=== PATIENT | female | born 1960 | race Caucasian/White ===

== ENCOUNTER 2023-12-03 12:07 | Observation (INO) | payer MEDICARE, SELFPAY ==
[2023-12-03] VITALS (14 sets, daily range): BP systolic 110–151; BP diastolic 60–98; BMI 21.2
--- NOTE | 2023-12-03 07:58 | ED.GENMED ---
History of Present Illness
General
Chief Complaint: Fall
Source: patient and ambulance crew
Exam Limitations: none
Time Seen by Provider: 12/03/23 07:43
Nursing documentation reviewed up to this point in time: agreed with
Travel History
Have you had any contact with someone who has COVID-19?: No
Do you have any symptoms of coronavirus? Fever > 100 degrees, chills, cough, shortness of breath, sore throat, loss of taste or smell, muscle aches, or headache?: No
History of Present Illness
History of Present Illness:
63-year-old female with past medical history of low heart rate currently being evaluated by cardiology presenting to the emergency department today with concerns of an episode where she felt very nauseous was on her way to the bathroom this morning
felt lightheaded passed out fell to the ground apparently this was heard by the who was at the scene she was unconscious for rough 30 seconds or less upon awakening she was able to stand up still felt somewhat lightheaded and started having
shooting discomfort down both of her arms left side worse than the right. Denies specific numbness or weakness. Does have some neck pain and also left-sided forehead laceration. She denies any chest pain shortness of breath. When EMS arrived her
heart rate was in the 40s and high 30s and her blood pressure was in the 70s systolic. This improved after receiving fluids. She does feel better at this point upon arrival to the ER but does still have some mild ongoing lightheadedness. Also
does have ongoing shoulder discomfort.
Past History
Past History
ED Past Medical History: Other (Gastritis); Negative Asthma, HTN, Hypercholesterolemia or NIDDM
ED Past Surgical History: None
Social History
Tobacco: Non-smoker
Alcohol: Occasional
Personal: Partner
Living: with family
Review of Systems
Review of Systems
Allergies reviewed?: Yes
All Other Systems: ROS reviewed and negative except as documented in HPI and ROS
Phy Exam
Physical Exam
Physical Exam:
GENERAL: Alert , in no apparent distress
EYE: pupils equal and reactive
NECK: Supple, no significant adenopathy.
ENT: o/p clr, mmm.
CARDIAC: Regular rate and rhythm .
LUNGS: Clear breath sounds bilaterally, no acute respiratory distress, no wheezes/rales/rhonchi
ABDOMEN: Soft, without focal tenderness, no r/g, no cvat
NEUROLOGICAL: Alert and oriented, no focal neuro deficits 5 out of 5 upper and lower extremity strength and sensation palpated bilaterally.
SKIN: Warm and dry, skin intact.
MUSCULOSKELETAL: No edema, well perfused.
PSYCH: Normal and appropriate interaction.
Course
Orders/Labs/Results
Orders:
Orders
12/03/23 07:41
Electrocardiogram (*1) Urgent
Reason for Study: Vertigo / Dizzy
EKG- Treatment ONCE
12/03/23 07:47
Complete Blood Count/With Diff Urgent
12/03/23 07:55
CT Cervical Spine W/o Iv Contr Urgent
Comment:
Reason For Exam: fall neck pain, shooting pain to arms
CT Head W/o Iv Contrast Urgent
Comment:
Reason For Exam: fall hity head
Chest [CR Chest - 2 Views ] Urgent
Comment:
Reason For Exam: fall
12/03/23 07:56
0.9% Sodium Chloride 500 ml [Nss] 500 ml IV BOLUS
12/03/23 08:08
COVID-19 Antigen Urgent
Source: Nasal Swab
Lactic Acid Urgent
Influenza A+B Rapid Molecular Urgent
SOBEIDA Source: Nasal Swab
Specimen Description:
12/03/23 08:14
Comprehensive Metabolic Panel Routine
Troponin I Routine
12/03/23 10:19
BMP [Basic Metabolic Panel] Urgent
Abnormal Lab Results
12/03/23
08:14
Sodium 131 L mmol/L
(135-145)
Glucose 122 H mg/dl
(70-99)
12/03/23 07:47
Vital Signs
Initial and Last Documented VS:
Initial Vital Signs
Temp Pulse Resp BP Pulse Ox
97.6 F 58 16 134/71 98
12/03/23 07:42 12/03/23 07:42 12/03/23 07:42 12/03/23 07:42 12/03/23 07:42
Last Documented Vital Signs
Temp Pulse Resp BP Pulse Ox
97.6 F 63 25 151/66 99
12/03/23 07:42 12/03/23 10:02 12/03/23 10:02 12/03/23 10:16 12/03/23 10:17
MDM/Problems Addressed
MDM/Problems Addressed:
63-year-old female presenting to the emergency department today with concerns of discomfort shooting down her arms bilaterally after syncopal episode that occurred just prior to arrival. This was preceded by nausea. was at the scene
unconscious for 30 seconds or less. Hypotensive and bradycardic when EMS arrived but improved with a small amount of fluids. On arrival here vital signs are normal heart rate in the high 50s normal O2 saturation respirations normal blood pressure.
Plan for labs as well as CT scan for further assessment. No neurologic dysfunction of the upper or lower extremities however patient does have ongoing shooting discomfort down her left arm. CT scan of the neck was ordered. CT scan without
emergent findings. Labs unremarkable troponin negative. Chest x-ray without emergent findings. Patient has been having intermittent episodes of bradycardia and an episode today of syncope that may be related to slow heart rate concerning
possibility of cardiac syncope plan for admission for further monitoring and evaluation.
*Critical Care Note
Total Time (30-74mins, 75-104mins- exclusive of procedures): Not Applicable
ED Attending Note
-
Portions of this chart may have been created with voice recognition software.� Occasional wrong word or��sound alike� substitutions may have occurred due to the inherent limitations of voice recognition software.
Discharge Plan
Departure
Patient Disposition: Admit
Date of Disposition: 12/03/23
Time of Disposition: 10:35
Admit to: Telemetry
Admit to doctor: Nella
Presentation/result/management discussed w/ accepting MD/DO: Hospitalist
Patient with high blood pressure during this ER visit?: No
Condition: Good
Covid-19: Not Applicable
Discharge Problem:
Syncope, Bradycardia
Prescriptions:
No Action
budesonide [Rhinocort Allergy] 8.43 ML spray,non-aerosol
1 spray intranasal DAILYPRN PRN (Reason: allergies)
cetirizine 10 MG tablet
10 mg PO NOW
omeprazole 40 mg Capsule,Delayed Release(Dr/Ec)
40 mg PO DAILY PRN (Reason: acid reflux)
Referrals:
Nayla Hart MD [Family Provider] -
Interventions
Interventions:
*Risk Screen - Suicide Last Done: 12/03/23 07:42
*General Assessment Last Done: 12/03/23 07:42
*Neglect/Abuse Screening Last Done: 12/03/23 07:42
ED- Fall Risk Assessment Last Done: 12/03/23 07:42
*ED COVID-19 Vaccine History Last Done: 12/03/23 07:42
ED-Musculoskeletal Assessment Last Done: 12/03/23 07:42
ED- Neurological Assessment Last Done: 12/03/23 07:42
ED-Skin Assessment Last Done: 12/03/23 07:42
[2023-12-03 08:05] LABS: % Basophils 0.3 % (0-2); % Eosinophils 0.6 % (0-6); % Immature Granulocytes 0.3 % (0-0.5); % Lymphocytes 21.3 % (20.5-51.1); % Monocytes 5.8 % (1.7-9.3); % Neutrophils 71.7 % (42.2-75.2); Absolute Lymphocytes 1.4 10^3/uL (1.2-3.4); Absolute Monocytes 0.4 10^3/uL (0.1-0.6); Absolute Neutrophils 4.7 10^3/uL (1.4-6.5); Hematocrit 38.3 % (37.0-47.0); Hemoglobin 13.1 g/dL (12.0-16.0); Mean Corp Hgb Conc. 34.2 g/dL (33.0-37.0); Mean Corpuscular Hgb 30.9 pg (27.0-31.0); Mean Corpuscular Volume 90.3 fL (81.0-99.0); Mean Platelet Volume 9.6 fL (7.4-10.4); Nucleated Red Blood Cells % 0 %; Platelet Count 222 10^3/uL (130-400); Red Blood Cell Count 4.24 10^6/uL (4.20-5.40); Red Cell Dist. Width 12.3 % (11.5-14.5); White Blood Cell Count 6.5 10^3/uL (4.8-10.8)
[2023-12-03] MEDS: NSS 500 IV (08:07)
[2023-12-03 08:35] LABS: Lactic Acid 1.4 mmol/L (0.7-2.0)
[2023-12-03 08:38] LABS: COVID-19 Antigen Negative (Negative)
[2023-12-03 08:41] LABS: ALT (SGPT) 21 U/L (0-35); AST (SGOT) 35 U/L (14-36); Albumin 3.9 g/dl (3.5-5.0); Alkaline Phosphatase 74 U/L (38-126); Blood Urea Nitrogen 14 mg/dl (7-17); Calcium 9.1 mg/dl (8.4-10.2); Carbon Dioxide 27 mmol/L (22-30); Chloride 101 mmol/L (98-107); Estimated Creatinine Clearance 68 ml/min; Glucose 122 mg/dl (70-99); Potassium 4.4 mmol/L (3.5-5.1); Sodium 131 mmol/L (135-145); Total Bilirubin 0.5 mg/dl (0.2-1.3); Total Protein 6.7 g/dl (6.3-8.2); eGFR > 60.00
[2023-12-03 08:47] LABS: Troponin I < 0.012 ng/ml
--- NOTE | 2023-12-03 10:31 | CON.CAR ---
Addendum entered and electronically signed by Jose R Akbar MD 12/03/23 13:15:
Patient seen and examined in collaboration with PROPERTY OFFICER; agree with below.
-Patient admitted with symptomatic bradycardia (syncope); known significant bradycardia previously.
-Echocardiogram today.
-Patient will undergo permanent pacemaker implantation tomorrow morning; NPO after midnight.
-production zone leader overnight.
Original Note:
Consultation
Consultation Request
Date/Time Consultation Requested: 12/03/23 0953
Date/Time Consultation Performed: 12/03/23 1056
Requesting Provider: Darek Carlin PA-C
Performing Provider: Ginny HENDRIX for Dr. Akbar
Reason for Consultation: bradycardia, syncope
Medical History
-
Chief Complaint: syncope
History of Present Illness:
63 y/o female with bradycardia who is here for evaluation after an episode of syncope this AM. Briefly, she felt nauseated and like she might vomit, so she started to walk to the bathroom and passed out. She felt mildly light-headed prior to passing
out. She has seen Dr. Randle in work-up of her bradycardia and was scheduled for a holter monitor today.
Past Medical History
Past Medical History: Arrhythmias and Other (seasonal allergies)
Social History
Tobacco: Non-Smoker
Alcohol: Occasional
Family History
Family History: CAD (mom stents) and Other (pacemaker dad)
Allergies / Home Medications
Allergy/AdvReac Type Severity Reaction Status Date / Time
No Known Allergies Allergy Unverified 02/07/21 13:49
Medication Instructions Recorded Confirmed Type
budesonide 32 mcg/actuation nasal 1 spray intranasal DAILYPRN PRN 02/07/21 12/03/23 History
spray (Rhinocort Allergy) allergies
cetirizine 10 mg tablet 10 mg PO NOW 02/07/21 12/03/23 History
omeprazole 40 mg capsule,delayed 40 mg PO DAILY PRN acid reflux 12/03/23 12/03/23 History
release
Review of Systems
-
History Source: Patient
All other systems: Negative unless noted
Constitutional: Fatigue
Cardiac: Syncope
Physical Exam
Vital Signs
Temp Pulse Resp BP Pulse Ox
97.6 F 63 25 151/66 99
12/03/23 07:42 12/03/23 10:02 12/03/23 10:02 12/03/23 10:16 12/03/23 10:17
Lab Results
12/03/23 07:47
Troponin I < 0.012 ng/ml 12/03/23 08:14
Physical Exam
General: Well Developed, Well Nourished and No Apparent Distress
HEENT: Normocephalic and Anicteric
Respiratory: Clear and Non Labored Respirations
Cardiac: Regular Rhythm (SB/SR)
Musculoskeletal: No Edema
Skin: Warm and Dry
Neuro: AO x 3
Psych: Calm
Impression / Plan
-
Syncope:
-suspect related to symptomatic bradycardia
-check echo
-likely plan for pacemaker tomorrow- Dr. Akbar to discuss with patient
-check thyroid studies, but previously normal
-follow tele and BP's
Bradycardia:
-severe in that she is symptomatic (fatigue, now progressed to syncope) and will require pacemaker as above
Data Reviewed
-
EKG: Tracing Personally Visualized and interpreted (SB 53 BPM)
Radiology: Report Reviewed by me (CXR 12/03/23: No acute cardiopulmonary process.)
CT Scan: Report Reviewed by me (Head- No acute intracranial abnormality.)
Medical Tests (Nuc Med, Echo etc): Report Reviewed by me (treadmill stress test 10/08/23: normal)
Labs: Labs Reviewed by me
[2023-12-03 11:00] LABS: Blood Urea Nitrogen 13 mg/dl (7-17); Calcium 8.9 mg/dl (8.4-10.2); Carbon Dioxide 25 mmol/L (22-30); Chloride 101 mmol/L (98-107); Estimated Creatinine Clearance 90 ml/min; Glucose 104 mg/dl (70-99); Sodium 130 mmol/L (135-145); eGFR > 60.00
--- NOTE | 2023-12-03 11:14 | HPS.HSE ---
Family Physician
-
Family Physician: Nayla Hart MD
Chief Complaint
-
Syncope
History of Present Illness
63-year-old female with a past medical history of gastritis, allergic rhinitis, and bradycardia currently being evaluated by Dr. Randle presents with syncope. Patient reports that she woke up this morning feeling nauseous and lightheaded. She was
going to the bathroom to vomit, and then passed out, hitting her head. Event was witnessed by her . She was unconscious for about 30 seconds. She has a small laceration on the corner of her left eye, as well as neck pain radiating down her
left arm. She was found to be bradycardic by EMS, with a heart rate in the 40s sinus. She denies chest pain, shortness of breath, palpitations. No dysuria, no black or bloody stools.
Medical History
Past Medical History
Past Medical History: Reports Other
Additional Past Medical History:
Bradycardia
Gastritis
Allergic rhinitis
Past Surgical History: Reports Other
Additional Past Surgical History:
Tonsillectomy
TV septum repair
Social History
Tobacco: Non-smoker
Alcohol: Occasional
Drug: None
Personal:
Living: With Family
Family History
Family History: Not pertinent
Allergies / Home Medications
Allergies reflects when Allergies were last updated in [facility].
Home Medications with original date entered in [facility]
Allergy/Medication List:
Allergies
Allergy/AdvReac Type Severity Reaction Status Date / Time
No Known Allergies Allergy Unverified 02/07/21 13:49
Home Medications Table - record
Medication Instructions Recorded Confirmed
budesonide 32 mcg/actuation nasal 1 spray intranasal DAILYPRN PRN 02/07/21 12/03/23
spray (Rhinocort Allergy) allergies
cetirizine 10 mg tablet 10 mg PO NOW 02/07/21 12/03/23
omeprazole 40 mg capsule,delayed 40 mg PO DAILY PRN acid reflux 12/03/23 12/03/23
release
Review of Systems
-
A 12 point ROS was completed and negative except as noted: Yes
Physical Exam
Vital Signs
Vital Signs
Temp Pulse Resp BP Pulse Ox
97.6 F 63 25 151/66 99
12/03/23 07:42 12/03/23 10:02 12/03/23 10:02 12/03/23 10:16 12/03/23 10:17
Physical Exam
General: No Apparent Distress
HEENT: NormoCephalic, Anicteric and Other (Tiny laceration on the corner of the left orbit)
Respiratory: Clear
Cardiac: S1/S2 and Regular Rhythm
GI: Soft and Non Tender
Musculoskeletal: No Clubbing, No Cyanosis and No Edema
Neuro: Awake, Alert and Oriented
Psych: Calm
Laboratory Results
-
12/03/23 07:47
12/03/23 10:19
Laboratory Results
Lactic Acid 1.4 mmol/L (0.7-2.0) 12/03/23 08:08
Total Bilirubin 0.5 mg/dl (0.2-1.3) 12/03/23 08:14
AST 35 U/L (14-36) 12/03/23 08:14
ALT 21 U/L (0-35) 12/03/23 08:14
Alkaline Phosphatase 74 U/L (38-126) 12/03/23 08:14
Troponin I < 0.012 ng/ml 12/03/23 08:14
Impression/Plan
-
HPI: 63-year-old female with a past medical history of gastritis, allergic rhinitis, and bradycardia currently being evaluated by Dr. Randle presents with syncope. Patient reports that she woke up this morning feeling nauseous and lightheaded. She
was going to the bathroom to vomit, and then passed out, hitting her head. Event was witnessed by her . She was unconscious for about 30 seconds. She has a small laceration on the corner of her left eye, as well as neck pain radiating down
her left arm. She was found to be bradycardic by EMS, with a heart rate in the 40s sinus. She denies chest pain, shortness of breath, palpitations. No dysuria, no black or bloody stools.
#Syncope
#Sinus bradycardia
Monitor on telemetry, echocardiogram requested, consult cardiology
#Closed head injury
#Left orbit laceration
Head and neck CT are negative
Continue pain control, wound care
#Hyponatremia
Fluid restrict, check TSH/free T4, a.m. cortisol
#Nausea/vomiting
Antiemetics as needed
#History of gastritis
Continue PPI
#Allergic rhinitis
Continue antihistamine
DVT prophylaxis�subcu heparin
Full code
[2023-12-03 12:51] LABS: TSH Reflex To Free T4 1.17 uIU/ml (0.47-4.68)
[2023-12-03 17:23] LABS: Troponin I < 0.012 ng/ml
[2023-12-03] MEDS: HEPARIN 5000 UNITS SC (19:19)
[2023-12-03] MEDS: TYLENOL 1000 MG PO (19:41)
[2023-12-04] VITALS (11 sets, daily range): BP systolic 117–143; BP diastolic 67–82; BMI 20.4
--- NOTE | 2023-12-04 07:20 | W.PN.HOSP.TC ---
Today's Communication/Plan
-
For permanent pacemaker today
Assessment / Plan
Assessment / Plan
HPI: 63-year-old female with a past medical history of gastritis, allergic rhinitis, and bradycardia currently being evaluated by Dr. Randle presents with syncope.� Patient reports that she woke up this morning feeling nauseous and lightheaded.� She
was going to the bathroom to vomit, and then passed out, hitting her head.� Event was witnessed by her .� She was unconscious for about 30 seconds. She has a small laceration on the corner of her left eye, as well as neck pain radiating down
her left arm.� She was found to be bradycardic by EMS, with a heart rate in the 40s sinus.� She denies chest pain, shortness of breath, palpitations.� No dysuria, no black or bloody stools.
#Syncope
#Sinus bradycardia
Echocardiogram shows normal ejection fraction, small pericardial effusion
Appreciate cardiology input, plan for permanent pacemaker placement today
#Closed head injury
#Left orbit laceration
Head and neck CT are negative
Continue pain control, wound care
#Cervical radiculopathy
Pain control
#Hyponatremia
Suspect secondary to excess ADH secretion from pain
Sodium 131 today, improved from 130
Fluid restrict, TSH/free T4, a.m. cortisol normal
#Nausea/vomiting
Antiemetics as needed
#History of gastritis
Continue PPI
#Allergic rhinitis
Continue antihistamine
DVT prophylaxis�subcu heparin
Full code
Physical Exam
General: No acute distress
HEENT: Normocephalic, left periorbital ecchymosis, tiny laceration at the corner of the left orbit
EOMI, MMM
Respiratory: Clear to Auscultation bilaterally
Cardiac: Normal S1/S2, Regular Rate and Rhythm
GI: Soft, Nontender, Nondistended, Normal Bowel Sounds
Extremities: No Clubbing, Cyanosis, or Edema
Neuro: Nonfocal/Grossly Intact
Anticipated Discharge: Within 24 hours
Subjective/Interval History
-
Date of Service: December 04, 2023
Patient complains of arm pain coming from her neck from her fall.
Objective Data
-
Labs:
Laboratory Results
12/04/23
06:00
WBC Pending
Hgb Pending
Hct Pending
Plt Count Pending
Sodium Pending
Potassium Pending
Chloride Pending
Carbon Dioxide Pending
BUN Pending
Creatinine Pending
Glucose Pending
Calcium Pending
Vital Signs:
Vital Signs
Temp Pulse Resp BP Pulse Ox
98.3 F 58 16 134/77 98
12/04/23 02:37 12/04/23 02:37 12/04/23 02:37 12/04/23 02:37 12/04/23 02:37
[2023-12-04] MEDS: HEPARIN 5000 UNITS SC ×2 (07:52→19:38)
[2023-12-04] MEDS: ZYRTEC 10 MG PO (07:52)
[2023-12-04 07:56] LABS: Hemoglobin 12.7 g/dL (12.0-16.0); Mean Corp Hgb Conc. 34.3 g/dL (33.0-37.0); Mean Corpuscular Hgb 31.4 pg (27.0-31.0); Mean Corpuscular Volume 91.4 fL (81.0-99.0); Mean Platelet Volume 9.4 fL (7.4-10.4); Platelet Count 200 10^3/uL (130-400); Red Blood Cell Count 4.05 10^6/uL (4.20-5.40); Red Cell Dist. Width 12.2 % (11.5-14.5); White Blood Cell Count 5.9 10^3/uL (4.8-10.8)
[2023-12-04 08:40] LABS: Blood Urea Nitrogen 9 mg/dl (7-17); Calcium 9.3 mg/dl (8.4-10.2); Carbon Dioxide 24 mmol/L (22-30); Chloride 103 mmol/L (98-107); Estimated Creatinine Clearance 75 ml/min; Glucose 97 mg/dl (70-99); HDL Cholesterol 78 mg/dl; LDL Cholesterol, Calculated 100 mg/dl; Potassium 4.1 mmol/L (3.5-5.1); Sodium 131 mmol/L (135-145); Total Cholesterol 188 mg/dl (50-199); Triglyceride 51 mg/dl (10-149); Very Low Density Lipoprotein 10 mg/dl (0-30); eGFR > 60.00
[2023-12-04 08:45] LABS: TSH Reflex To Free T4 1.99 uIU/ml (0.47-4.68)
--- NOTE | 2023-12-04 10:34 | W.PN.CD ---
Today's Communication / Plan
-
- ECHO today
- PPM today
Impression / Plan
-
Syncope:
-suspect related to symptomatic bradycardia
-echo - 12/04/23: LVEF 65%- small pericardial effusion.
-Evaluated for baseline bradycardia and now syncope and fall and facial injury
-Plan for PPM today
Bradycardia:
-severe in that she is symptomatic (fatigue, now progressed to syncope) and will require pacemaker as above
Physical Exam
Vital Signs/Labs
Vital Signs
Temp Pulse Resp BP Pulse Ox
97.3 F 65 18 142/75 98
12/04/23 07:00 12/04/23 07:00 12/04/23 07:00 12/04/23 07:00 12/04/23 09:16
12/03/23 12/04/23 12/05/23
06:59 06:59 06:59
Actual Weight 59.024 kg
12/04/23 07:20
12/04/23 07:20
Triglycerides 51 mg/dl (10-149) 12/04/23 07:20
LDL Cholesterol, Calc 100 mg/dl 12/04/23 07:20
VLDL Cholesterol, Calc 10 mg/dl (0-30) 12/04/23 07:20
HDL Cholesterol 78 mg/dl 12/04/23 07:20
LAB Results
12/03/23 12/03/23 12/03/23
07:47 08:14 16:51
Troponin I Cancelled < 0.012 < 0.012
Physical Exam
Constitutional: No acute distress and Comfortable
EENT: Anicteric and Moist mucous membranes
Cardiovascular: Rhythm & rate is regular, Pedal edema is absent, JVD pressure is normal and Systolic murmur absent
Respiratory: Respiratory effort normal, Lungs clear to auscul. and Wheeze Absent
GI: Soft, Distention absent, Non tender and Normal bowel sounds
Neuro/Psych: Alert, Oriented and AO x 3
Other: Cardiac Device Site
Data Reviewed
-
Date of Service: December 04, 2023
Medical Decision Making: Reviewed Test Results, Independent Historian Assessment and Test Interpretation
EKG: Tracing Personally Visualized and interpreted
Echo: Tracing Personally Visualized and interpreted
Labs: Labs Reviewed by me
Old Records: Reviewed
--- NOTE | 2023-12-04 15:41 | ITS.CL.PACE ---
[facility] - Pacemaker Implant
Pacemaker Implant
Procedure Report:
Dual Chamber Pacemaker Placement:
Ms. Liriano is a very pleasant 63 yrs old woman with severe symptomatic bradycardia with syncope and fall is recommended for PPM placement.�
Indications: Sick sinus syndrome with symptomatic bradycardia
Date of the Procedure: 12/04/2023
Pre-Operative Diagnosis: Sick sinus syndrome with symptomatic bradycardia
Post-Operative Diagnosis: Sick sinus syndrome with symptomatic bradycardia
Procedure Performed: DUAL CHAMBER PACEMAKER IMPLANTATION
Performing Physician:
Massimo Winslow MD
Anesthesia:
See anesthesia records
Pre-operative antibiotics:
Ancef
Detailed Description of the Procedure:
The patient was identified using hospital identification and informed consent obtained for the procedure. The risks were explained including, but not limited to: Bleeding, infection, arrhythmia, stroke, vascular/cardiac/lung puncture, surgery,
pacemaker dependency/device malfunction. All questions were answered.
The patient was brought to the electrophysiology laboratory in stable condition in fasting state. Continuous electrocardiographic and hemodynamic monitoring was initiated. The initial rhythm was sinus tachycardia.
The procedure site was meticulously prepared with surgical scrub and allowed to dry with no pooling. Sterile draping was applied to cover the procedure site. The image intensifier was draped with sterile bag and positioned over the patient.
A surgical pause and time out was performed immediately prior to the procedure with review of her medical history, recent labs, allergies and medications with site of procedure identified and consent noted in the chart. Antibiotics pre operatively
given. All team members concurred.
The left infraclavicular region was prepped and draped in the usual sterile fashion. Local anesthesia was administered subcutaneously using 1% lidocaine / Bupivacaine.
The left upper extremity venogram was done and the axillary route identified. There was patent subclavian vein.
Following infiltration with local anesthetic, the axillary vein was accessed using the fluoroscopic guidance using the micro-puncture apparatus. The vascular sheaths were introduced for lead access. The leads were advanced into the right ventricle
and the right atrium.
The right ventricular lead was secured in position with an active fixation technique at the apical septal location.
The atrial lead was deployed in the right atrial appendage with passive fixation using tines.
There was excellent sensing, pacing, and impedance from the leads, with no diaphragmatic stimulation at 10 V output.�Bovie cautery, antibiotics, and fluoroscopy were used.
The sheaths were withdrawn, and the thresholds remained acceptable. The leads were secured in position at the venous entry site with 0-silk.
A pocket was fashioned contiguous to the incision. The electrode terminals were connected to the pulse generator, which was placed into the pocket.
The generator was secured to the underlying fascia using a 0-silk suture.
The wound was irrigated thoroughly with antibiotic solution and closed in 3 layers using 2-0 VLoc followed by 4-0 V lock sutures to the dermis. STERIS trips were applied externally followed by Aquacel bandage. �
Procedure End:
The procedure was tolerated well.
Estimated Blood loss:
5 cc
Specimens Removed:
No cultures and no specimens were obtained. No intraoperative pathology was identified.
Urine output:
None
Packs / Drains/ Tubes:
None
Instrument / Sponge Count Correct:
Yes
Complications of the Procedure:
None
Condition of Patient at Time of Transfer:
Hemodynamically stable with no neurological or vascular compromise.
Device information:�
Generator: [employer]; Model: [id number]; Serial # [id number]
Atrial Lead: [employer]; Model: 1944/46; Serial # [id number]
Measured data in the right atrium was sensing of 2.5mV, impedance of 480 ohms and threshold of 0.5V at 0.4ms�
RV Lead: [employer]; Model: [id number]/[id number]; Serial # [id number]
Measured data in the RV lead was sensing of 11mV, impedance of 580 ohms and threshold of 0.5 V at 0.4ms�
Shabbir parameter settings were DDDR 60-130 bpm. �
����������� Mode Switch: On
����������� Paced AV interval: 180ms
����������� Sensed AV interval: 150 ms.
Output� parameters:
����������������������� Amplitude (V)������������� Pulse Width (ms)������� Sensitivity (mV)
����������� RA: ���� 3.5 ����������������� 0.4������������������ 0.3
����������� RV:����� 3.5������������������ 0.4������������������ 0.9
Summary:
Successful implantation of MRI compatible dual St Raghavendra chamber pacemaker
Results/Recommendations:
-Please follow up CXR�
-Please provide patient with adequate pain control�
Instructions to be given to patient:�
- Please follow up with [facility] at [address] [place] [address] ([phone]) to get your wound checked within 14 days of your discharge.
- Do not wet incision site until after it is evaluated at cardiology clinic. No soaking or bath until then. Showers or Sponge baths are OK.�Dab dry the area after a shower.
- Do not lift left elbow above shoulder, particularly with sudden jerking movements, for 1 month�
- Do not lift anything weighing more than 10 pounds with the left arm for 1 month�
- If you notice any fevers, shortness of breath, lightheadedness, chest pain, or worsening swelling in the wound site, please contact the arrhythmia clinic, contact your content coordinator, or present to the hospital for evaluation.�
Massimo Winslow MD
Electrophysiology
--- NOTE | 2023-12-04 15:52 | CM ---
Alert awake oriented patient who lives with her Julio in a 1 story home with 1 step to enter and bath/bed room on first floor. She is independent in driving and all activities of daily living.Spoke with Julio patient was off floor.She is having
a pacemaker placed. Offered VN he declined need.
No adaptive devices
No SNF/VN hx
Pharmacy [facility]
PCP Dr Hart
PLAN Home no anticipated needs
--- NOTE | 2023-12-04 16:03 | PTCARENOTE ---
Pt back to unit s/p L dual chamber pacemaker placement. DDDR 60-130. Aquacel dressing dry and intact. Sling in place. Pt a bit groggy but alert and conversive. VSS.
[2023-12-04] MEDS: TYLENOL 1000 MG PO (18:29)
[2023-12-04] MEDS: ROXICODONE 5 MG PO (20:47)
[2023-12-04] MEDS: ANCEF 5 IV (21:31)
[2023-12-05] VITALS (8 sets, daily range): BP systolic 116–153; BP diastolic 68–90; BMI 20.4
[2023-12-05] MEDS: ROXICODONE 5 MG PO ×2 (00:48→08:07)
[2023-12-05] MEDS: ANCEF 5 IV (05:43)
[2023-12-05] MEDS: TYLENOL 1000 MG PO ×2 (05:49→17:24)
[2023-12-05 07:07] LABS: Hematocrit 37.3 % (37.0-47.0); Hemoglobin 12.9 g/dL (12.0-16.0); Mean Corp Hgb Conc. 34.6 g/dL (33.0-37.0); Mean Corpuscular Volume 89.7 fL (81.0-99.0); Mean Platelet Volume 9.1 fL (7.4-10.4); Platelet Count 189 10^3/uL (130-400); Red Blood Cell Count 4.16 10^6/uL (4.20-5.40); Red Cell Dist. Width 12.4 % (11.5-14.5); White Blood Cell Count 5.5 10^3/uL (4.8-10.8)
[2023-12-05 07:32] LABS: Blood Urea Nitrogen 10 mg/dl (7-17); Calcium 9.1 mg/dl (8.4-10.2); Carbon Dioxide 26 mmol/L (22-30); Chloride 95 mmol/L (98-107); Estimated Creatinine Clearance 87 ml/min; Glucose 94 mg/dl (70-99); Magnesium 2.1 mg/dl (1.6-2.3); Potassium 4.2 mmol/L (3.5-5.1); Sodium 128 mmol/L (135-145); eGFR > 60.00
[2023-12-05] MEDS: ZYRTEC 10 MG PO (08:07)
[2023-12-05] MEDS: HEPARIN 5000 UNITS SC ×2 (08:07→20:27)
--- NOTE | 2023-12-05 08:08 | W.PN.HOSP.TC ---
Today's Communication/Plan
-
Discontinue low-sodium diet
Resume fluid restriction
Check urine studies
Monitor sodium
Assessment / Plan
Assessment / Plan
HPI: 63-year-old female with a past medical history of gastritis, allergic rhinitis, and bradycardia currently being evaluated by Dr. Randle presents with syncope.� Patient reports that she woke up this morning feeling nauseous and lightheaded.� She
was going to the bathroom to vomit, and then passed out, hitting her head.� Event was witnessed by her .� She was unconscious for about 30 seconds. She has a small laceration on the corner of her left eye, as well as neck pain radiating down
her left arm.� She was found to be bradycardic by EMS, with a heart rate in the 40s sinus.� She denies chest pain, shortness of breath, palpitations.� No dysuria, no black or bloody stools.
#Syncope
#Sinus bradycardia
Echocardiogram shows normal ejection fraction, small pericardial effusion
Appreciate cardiology input, s/p permanent pacemaker placement 12/04
#Hyponatremia
Suspect secondary to excess ADH secretion from pain
Sodium 128 today, was 131, 130
TSH/free T4, a.m. cortisol normal
Discontinue low-sodium diet
Resume fluid restriction
Check urine studies
Monitor sodium
#Closed head injury
#Left orbit laceration
Head and neck CT are negative
Continue pain control, wound care
#Cervical radiculopathy
Pain control
#Nausea/vomiting
Antiemetics as needed
#History of gastritis
Continue PPI
#Allergic rhinitis
Continue antihistamine
DVT prophylaxis�subcu heparin
Full code
Physical Exam
General: No acute distress
HEENT: Normocephalic, left periorbital ecchymosis, tiny laceration at the corner of the left orbit
EOMI, MMM
Respiratory: Clear to Auscultation bilaterally
Cardiac: Normal S1/S2, Regular Rate and Rhythm
GI: Soft, Nontender, Nondistended, Normal Bowel Sounds
Extremities: No Clubbing, Cyanosis, or Edema
Neuro: Nonfocal/Grossly Intact
Anticipated Discharge: Within 24 hours
Subjective/Interval History
-
Date of Service: December 05, 2023
Complains of neck pain radiating down from the fall.
Objective Data
-
Labs:
Laboratory Results
12/05/23
06:30
WBC 5.5
Hgb 12.9
Hct 37.3
Plt Count 189
Sodium 128 L
Potassium 4.2
Chloride 95 L
Carbon Dioxide 26
BUN 10
Creatinine 0.6
Glucose 94
Calcium 9.1
Vital Signs:
Vital Signs
Temp Pulse Resp BP Pulse Ox
97.9 F 61 16 153/90 99
12/05/23 04:43 12/05/23 04:43 12/05/23 04:43 12/05/23 04:43 12/05/23 04:43
I&O
12/04/23 12/05/23 12/06/23
06:59 06:59 06:59
Intake Total 480 / 480
Balance 480 / 480
[2023-12-05] MEDS: LIDOCAINE 4% PATCH 1 PATCH TOPICAL (10:25)
--- NOTE | 2023-12-05 11:07 | W.PN.UPDATE ---
Update Note
Progress Note Update
Patient seen and examined. Lungs clear. Cardiac regular rate and rhythm no rub. Pacemaker site normal. Dressing clean dry and intact. Chest x-ray appropriate lead position and slack. No pneumothorax. EKG atrially paced.
Doing well for pacemaker implanted for marked severe sinus bradycardia and syncope.
Follow-up arranged with us on December 12 in the [place] office.
We will sign off. Please call with questions.
--- NOTE | 2023-12-05 11:58 | CM ---
Chart reviewed. Spoke with pt and at bedside.
Following labs - low sodium
CM will follow for d/c needs
Anticipate home no needs
[2023-12-05 14:34] LABS: Osmolality Urine 163 mOsm/kg (300-900)
[2023-12-05 14:49] LABS: Urine Sodium 15 mmol/L (30-90)
[2023-12-06] MEDS: TYLENOL 1000 MG PO ×2 (00:31→07:40)
[2023-12-06 04:22] VITALS: BMI 20.1
[2023-12-06 04:27] VITALS: BP 142/86
[2023-12-06] MEDS: ZYRTEC 10 MG PO (07:40)
[2023-12-06 07:41] VITALS: BP 124/79
[2023-12-06] MEDS: HEPARIN 5000 UNITS SC (07:41)
[2023-12-06] MEDS: LIDOCAINE 4% PATCH 1 PATCH TOPICAL ×2 (07:41→10:43)
--- NOTE | 2023-12-06 09:00 | W.PN.HOSP.TC ---
Today's Communication/Plan
-
Discharge today
Assessment / Plan
Assessment / Plan
HPI: 63-year-old female with a past medical history of gastritis, allergic rhinitis, and bradycardia currently being evaluated by Dr. Randle presents with syncope.� Patient reports that she woke up this morning feeling nauseous and lightheaded.� She
was going to the bathroom to vomit, and then passed out, hitting her head.� Event was witnessed by her .� She was unconscious for about 30 seconds. She has a small laceration on the corner of her left eye, as well as neck pain radiating down
her left arm.� She was found to be bradycardic by EMS, with a heart rate in the 40s sinus.� She denies chest pain, shortness of breath, palpitations.� No dysuria, no black or bloody stools.
#Syncope
#Sinus bradycardia
Echocardiogram shows normal ejection fraction, small pericardial effusion
Appreciate cardiology input, s/p permanent pacemaker placement 12/04
Cleared by cardiology for discharge, follow-up with cardiology in the office
#Hyponatremia
Suspect secondary to excess ADH secretion from pain
Sodium 132 today, was 128 , was 131, 130
TSH/free T4, a.m. cortisol normal, urine studies reviewed
Discontinue low-sodium diet
Resumed fluid restriction
Stable for discharge on fluid restriction
#Closed head injury
#Left orbit laceration
Head and neck CT are negative
Continue pain control, wound care
#Cervical radiculopathy
Pain control
#Nausea/vomiting
Antiemetics as needed
#History of gastritis
Continue PPI
#Allergic rhinitis
Continue antihistamine
DVT prophylaxis�subcu heparin
Full code
Physical Exam
General: No acute distress
HEENT: Normocephalic, left periorbital ecchymosis, tiny laceration at the corner of the left orbit
EOMI, MMM
Respiratory: Clear to Auscultation bilaterally
Cardiac: Normal S1/S2, Regular Rate and Rhythm
Chest wall: Permanent pacemaker dressing intact, left arm in sling
GI: Soft, Nontender, Nondistended, Normal Bowel Sounds
Extremities: No Clubbing, Cyanosis, or Edema
Neuro: Nonfocal/Grossly Intact
Anticipated Discharge: Today
Subjective/Interval History
-
Date of Service: December 06, 2023
Patient's neck pain and arm pain feel better.
Objective Data
-
Labs:
Laboratory Results
12/06/23
10:00
Sodium Pending
Potassium Pending
Chloride Pending
Carbon Dioxide Pending
BUN Pending
Creatinine Pending
Glucose Pending
Calcium Pending
Vital Signs:
Vital Signs
Temp Pulse Resp BP Pulse Ox
97.7 F 66 16 124/79 97
12/06/23 07:41 12/06/23 07:41 12/06/23 07:41 12/06/23 07:41 12/06/23 07:41
I&O
12/05/23 12/06/23 12/07/23
06:59 06:59 06:59
Intake Total 480 / 480 1080 / 1080
Balance 480 / 480 1080 / 1080
[2023-12-06 10:42] LABS: Blood Urea Nitrogen 11 mg/dl (7-17); Calcium 9.6 mg/dl (8.4-10.2); Carbon Dioxide 26 mmol/L (22-30); Chloride 102 mmol/L (98-107); Glucose 111 mg/dl (70-99); Potassium 4.3 mmol/L (3.5-5.1); Sodium 132 mmol/L (135-145)
[2023-12-06 10:47] VITALS: BP 115/78
[2023-12-06 10:52] LABS: Estimated Creatinine Clearance 73 ml/min; eGFR > 60.00
--- NOTE | 2023-12-06 11:07 | W.DCSUMMARY ---
Discharge Summary
Discharge Data
Date of Admission: 12/03/23
Date of Discharge: 12/06/23
-
Pending Results: No
Hospital Course
Discharge diagnosis:
Syncope
Sick sinus syndrome with symptomatic bradycardia status post permanent pacemaker placement
Hyponatremia
Closed head injury
Left orbit laceration
Cervical radiculopathy
Nausea/vomiting
History of gastritis
Allergic rhinitis
Consults: Cardiology
Procedures:
12/04/2023 permanent pacemaker placement
Echo:�Normal left ventricular size, wall thickness and systolic function. No regional
�wall motion abnormalities are seen. LV ejection fraction is 55-60% by visual
�assessment.� Normal diastolic function.
�Normal right ventricular size and function.
�Normal atria.
�No significant valve abnormalities.
�Small, primarily anterior pericardial effusion, measuring 0.9 - 1.0 cm, without
�evidence of hemodynamic compromise.
�No evidence of pulmonary hypertension.
Hospital course:
63-year-old female with a past medical history of gastritis, allergic rhinitis, and bradycardia currently being evaluated by Dr. Randle presents with syncope. Patient was seen in conjunction with cardiology. She was found to have sick sinus
syndrome with symptomatic sinus bradycardia. She underwent permanent pacemaker placement on 12/04/2023. She did well postoperatively, and can follow-up with cardiology in the office.
Patient did have s closed head injury during her syncope. Head and neck CT were negative for acute abnormalities. She did have neck pain that radiated down her arms, causing cervical radiculopathy. She received Tylenol, lidocaine patches, and
ice/heating pads.
Patient's hospital course was complicated by hyponatremia. TSH and cortisol were normal. Suspect this is due to excess ADH release from the pain. She was treated with fluid restriction. Her sodium improved to 132 on the day of discharge. She is
recommended to continue with fluid restriction upon discharge.
Patient is medically stable for discharge. She needs to follow-up with cardiology as well as her primary care doctor in the office.
Disposition: Home self-care
Discharge planning: Required 33 minutes
Discharge Plan
-
Patient Disposition: Home (Routine Discharge)
Discharge Diagnosis/Procedures: Syncope, closed head injury, neck pain radiating down the arms, bradycardia status post pacemaker insertion, hyponatremia/low sodium
Condition: Good
Diet: Low Fat, Low Cholesterol and Restrict fluids to 64 oz
Driving Restrictions: No driving for 1 week
Bathing Restrictions: OK to Shower
Stand Alone Forms: [facility] Inst - Implanted Device
Referrals:
Ginny Mujica CRNP [Specified Professional Personl] - 12/12/23 2:20 pm (Incision check appointment)
Nayla Hart MD [Family Provider] - in one week
Prescriptions:
New
lidocaine 4 % Adhesive Patch,Medicated
2 patch topical DAILY Qty: 20 0RF
acetaminophen [Pain Relief ES (acetaminophen)] 500 mg Tablet
1,000 mg PO Q6HPRN PRN (Reason: mild pain or fever) Qty: 60 0RF
Continued
cetirizine 10 MG tablet
10 mg PO DAILY
digestive enzymes Tablet
1 tab PO QPMPRN PRN (Reason: supplement)
omeprazole 20 mg Capsule,Delayed Release(Dr/Ec)
20 mg PO QPM PRN (Reason: acid reflux)
vitamin B complex Tablet
1 tab PO QPM
Multivitamin 50 Plus Tablet
1 tab PO DAILY
glucosamine edward 2KCl-chondroit [Glucosamine-Chondroitin 3X Str] 750-600 mg Tablet
1 tab PO .3 TIMES A WEEK
Patient Comments:
12/03/2023, takes three times a week around dinner time. Days are not consistent from week to week.
cholecalciferol (vitamin D3)
1 tab PO QPMPRN PRN (Reason: supplement)
Discharge Orders:
Discharge Patient (As Directed); Ordered 12/06/23
Ordered By: Amrit Barber
Discharge Date and Time
Discharge Date/Time: 12/06/23 12:37
--- NOTE | 2023-12-06 12:45 | CM ---
Patient left the hospital before [employer] assessed DC needs.
Per prior CM notes, patient declined offer for home care and had no needs
Per nurse, patient's provided transport home
== END 2023-12-06 12:37 | disposition home or self-care (01) ==
LOC: 4 EAST ACU 12:07
PROVIDERS: Physician Assistant; ADMITTING PHYSICIAN Family Medicine; CONSULT PHYSICIAN Internal Medicine; EMERGENCY PHYSICIAN Emergency Medicine; FAMILY PHYSICIAN Student in an Organized Health Care Education/Training Program
DX: I49.5 Sick sinus syndrome (principal); R00.1 Bradycardia, unspecified; S01.112A Laceration without foreign body of left eyelid and periocular area, initial encounter; S09.90XA Unspecified injury of head, initial encounter; W18.39XA Other fall on same level, initial encounter; E87.1 Hypo-osmolality and hyponatremia; K29.70 Gastritis, unspecified, without bleeding; J30.9 Allergic rhinitis, unspecified; M47.22 Other spondylosis with radiculopathy, cervical region; Z11.52 Encounter for screening for COVID-19; Z79.899 Other long term (current) drug therapy; Z82.49 Family history of ischemic heart disease and other diseases of the circulatory system
CPT/HCPCS: 33208; 70450; 71045; 71046; 72125; 80048; 80053; 80061; 82533; 82570; 83036; 83605; 83735; 83935; 84300; 84443; 84484; 85025; 85027; 87502; 87811; 93005; 93306; 96360; 99285; C1785; C1892; C1898; G0378; Q9967

== ENCOUNTER → 2024-01-21 10:37 | Outpatient (REF) | payer MEDICARE, SELFPAY | LOC: RAD 10:37 | PROVIDERS: ATTENDING PHYSICIAN Student in an Organized Health Care Education/Training Program | DX: Z95.0 Presence of cardiac pacemaker (principal) | CPT/HCPCS: 71046 ==

== ENCOUNTER → 2024-01-23 13:31 | Outpatient (REF) | payer MEDICARE, SELFPAY | LOC: MRI 13:31 | PROVIDERS: ATTENDING PHYSICIAN Student in an Organized Health Care Education/Training Program | DX: M54.12 Radiculopathy, cervical region (principal); M54.6 Pain in thoracic spine | CPT/HCPCS: 72141; 72146 ==

== ENCOUNTER → 2024-07-29 06:17 | Day surgery (SDC) | payer MEDICARE, SELFPAY | LOC: GI 06:17 | PROVIDERS: ATTENDING PHYSICIAN Specialist | DX: Z12.11 Encounter for screening for malignant neoplasm of colon (principal); Z80.0 Family history of malignant neoplasm of digestive organs; K57.30 Diverticulosis of large intestine without perforation or abscess without bleeding | CPT/HCPCS: G0121 ==

== ENCOUNTER → 2024-08-04 16:36 | Outpatient (REF) | payer MEDICARE, SELFPAY | LOC: WDC 16:36 | PROVIDERS: ATTENDING PHYSICIAN Student in an Organized Health Care Education/Training Program | DX: Z12.31 Encounter for screening mammogram for malignant neoplasm of breast (principal) | CPT/HCPCS: 77063; 77067 ==